=== PATIENT | male | born 1990 | race African-American/Black ===

== ENCOUNTER 2023-05-04 17:41 | Emergency (ER) | payer MEDICAID ==
[~2023-05-04] VITALS: Ht 180.3 cm; Wt 63.5 kg
[2023-05-04 18:09] VITALS: BP 125/94; PULSE 92; RESP 18; TEMP 97; O2SAT 98
[2023-05-04 20:20] VITALS: BP 125/94; PULSE 92; RESP 18; TEMP 97; O2SAT 98
--- NOTE | 2023-05-04 20:20 | NUR ---
Patient discharged with v/s stable. Written and verbal after care instructions given and explained BY DR. FALLON. Patient verbalized understanding. Ambulatory with steady gait. All questions addressed prior to discharge. Advised to follow up with PMD.
--- NOTE | 2023-05-04 20:30 | NUR ---
URINE COLLECTED, IN ROOM.
== END 2023-05-04 20:20 | disposition home or self-care (01) ==
LOC: MED 17:41
DX: R51.9 Headache, unspecified (principal); F12.90 Cannabis use, unspecified, uncomplicated
CPT/HCPCS: 70450; 99284